=== PATIENT | male | born 1960 | race Two or more races ===

== ENCOUNTER 2023-07-25 12:06 | Inpatient (IN) | payer OTHER ==
[2023-07-25 13:12] VITALS: BMI 29.7
[2023-07-25] MEDS ORDERED: ACETAMINOPHEN 325 MG TABLET (FP) PO PRN (16:54)
[2023-07-25] MEDS ORDERED: IBUPROFEN 400 MG TABLET (FP) PO PRN (16:54)
[2023-07-25] MEDS ORDERED: BISMUTH SUBSALICYLATE 524 MG/30 ML PO PRN (16:54)
[2023-07-25] MEDS ORDERED: P-EPHED 60MG/TRIPROLIDI 2.5MG TABLET PO PRN (16:54)
[2023-07-25] MEDS ORDERED: LOPERAMIDE HCL 2 MG CAPSULE PO PRN (16:54)
[2023-07-25] MEDS ORDERED: BENZOCAINE/MENTHOL (CHLORASEPTIC ) LOZENGE MM PRN (16:54)
[2023-07-25] MEDS ORDERED: BENZONATATE 200 MG CAPSULE PO PRN (16:54)
[2023-07-25] MEDS ORDERED: ONDANSETRON *ODT* 4 MG TABLET SL PRN (16:54)
[2023-07-25] MEDS ORDERED: MAGNESIUM HYDROX 2400MG/30ML ORAL SUSPENSION 30 ML CUP PO PRN (16:54)
[2023-07-25] MEDS ORDERED: POLYETHYLENE GLYCOL (HEALTHYLAX) 3350 17 GM PACKET PO PRN (16:54)
[2023-07-25] MEDS ORDERED: guaiFENesin 600 MG TABLET.ER (FP) PO PRN (16:54)
[2023-07-25] MEDS ORDERED: MAG HYDROX/AL HYDROX/SIMETH 30 ML UNIT-DOSE CUP PO PRN (16:54)
[2023-07-25] MEDS ORDERED: DICYCLOMINE HCL 10 MG CAPSULE PO PRN (16:54)
[2023-07-25] MEDS: IBUPROFEN 600 MG TABLET (FP) PO PRN (19:21)
[2023-07-25] MEDS: MELATONIN 5 MG TABLETS PO SCH (22:37)
[2023-07-25] MEDS: THIAMINE HCL 100 MG TABLET (FP) PO SCH (22:38)
[2023-07-26] MEDS: hydrOXYzine PAMOATE 25 MG CAPSULE (FP) PO PRN ×2 (09:42→22:01)
[2023-07-26] MEDS: PRENATAL VITAMINS W/ FOLIC ACID TABLET (FP) PO SCH (09:42)
[2023-07-26 11:38] LABS: CHLORIDE 108 mmol/L (98-107); SODIUM 143 mmol/L (136-145)
[2023-07-26 11:51] LABS: HEMATOCRIT 36.1 % (35.4-49); HEMOGLOBIN 11.8 GM/dL (11.7-16.9); MCH 28.7 pg (25.7-33.7); MCHC 32.6 g/dl (32.0-35.9); MEAN CELL VOLUME 87.9 fl (80-96); MEAN PLT VOLUME 9.4 fl (7.5-11.1); PLATELET COUNT 148 10^3/uL (134-434); RDW 17.5 % (11.9-15.9); WHITE BLOOD COUNT 3.1 K/mm3 (4.0-10.0)
[2023-07-26 11:55] LABS: CALCIUM 8.9 mg/dL (8.5-10.1)
[2023-07-26 11:56] LABS: ANION GAP 4 mmol/L (4-13); BLOOD UREA NITROGEN 14.5 mg/dL (7-18); CO2 30 mmol/L (21-32); GLUCOSE,RANDOM 109 mg/dL (74-106)
[2023-07-26 11:58] LABS: CREATININE 0.6 mg/dL (0.55-1.3)
[2023-07-26 11:59] LABS: SGOT/AST 33 U/L (15-37); SGPT/ALT 30 U/L (13-61)
[2023-07-26 12:00] LABS: BILIRUBIN,TOTAL 1.3 mg/dL (0.2-1); TOT PROT 6.1 g/dl (6.4-8.2)
[2023-07-26 12:01] LABS: ALK PHOS 54 U/L (45-117)
[2023-07-26 16:48] VITALS: RESP 18
[2023-07-26] MEDS: IBUPROFEN 600 MG TABLET (FP) PO PRN (17:25)
[2023-07-26] MEDS: MELATONIN 5 MG TABLETS PO SCH (22:01)
[2023-07-26] MEDS: THIAMINE HCL 100 MG TABLET (FP) PO SCH (22:01)
[2023-07-27] MEDS: hydrOXYzine PAMOATE 25 MG CAPSULE (FP) PO PRN (09:39)
[2023-07-27] MEDS: PRENATAL VITAMINS W/ FOLIC ACID TABLET (FP) PO SCH (09:39)
[2023-07-27 10:07] VITALS: BP 154/96; PULSE 74; TEMP 98.4
[2023-07-27] MEDS ORDERED: amLODIPine BESYLATE 5 MG TABLET (FP) PO SCH (10:30)
== END 2023-07-27 13:05 | disposition home or self-care (01) | DRG 775 ==
LOC: YASAS 12:06 → Y6N 18:17
PROVIDERS: ADMIT Allergy & Immunology; ATTEND Surgery
PROC: HZ2ZZZZ Detoxification Services for Substance Abuse Treatment (ICD-10-PCS; principal; 2023-07-25)
DX: F10.10 Alcohol abuse, uncomplicated (principal); I10 Essential (primary) hypertension
CPT/HCPCS: 36415; 80053; 80307; 85027; 86780; 87635

== ENCOUNTER 2024-12-06 16:58 | Inpatient (IN) | payer OTHER ==
[2024-12-06 17:49] VITALS: BMI 30.2
[2024-12-06] MEDS ORDERED: MAGNESIUM HYDROX 2400MG/30ML ORAL SUSPENSION 30 ML CUP PO PRN (18:07)
[2024-12-06] MEDS ORDERED: BENZOCAINE/MENTHOL (CHLORASEPTIC ) LOZENGE MM PRN (18:07)
[2024-12-06] MEDS ORDERED: IBUPROFEN 400 MG TABLET (FP) PO PRN (18:07)
[2024-12-06] MEDS ORDERED: NALOXONE (NARCAN) HCL 4 MG/0.1 ML SPRAY NS PRN (18:07)
[2024-12-06] MEDS ORDERED: BENZONATATE 200 MG CAPSULE PO PRN (18:07)
[2024-12-06] MEDS ORDERED: LOPERAMIDE HCL 2 MG CAPSULE PO PRN (18:07)
[2024-12-06] MEDS ORDERED: POLYETHYLENE GLYCOL (HEALTHYLAX) 3350 17 GM PACKET PO PRN (18:07)
[2024-12-06] MEDS ORDERED: DICYCLOMINE HCL 10 MG CAPSULE PO PRN (18:07)
[2024-12-06] MEDS ORDERED: MAG HYDROX/AL HYDROX/SIMETH 30 ML UNIT-DOSE CUP PO PRN (18:07)
[2024-12-06] MEDS ORDERED: guaiFENesin 600 MG TABLET.ER (FP) PO PRN (18:07)
[2024-12-06] MEDS ORDERED: BISMUTH SUBSALICYLATE 524 MG/30 ML PO PRN (18:07)
[2024-12-06] MEDS ORDERED: hydrOXYzine PAMOATE 25 MG CAPSULE (FP) PO PRN (18:07)
[2024-12-06] MEDS ORDERED: ONDANSETRON *ODT* 4 MG TABLET SL PRN (18:07)
[2024-12-06] MEDS ORDERED: LORazepam 1 MG TABLET PO PRN (18:07)
[2024-12-06] MEDS: METOPROLOL TARTRATE 25 MG TABLET (FP) PO ONE ×2 (18:25→22:39)
[2024-12-06] MEDS ORDERED: METOPROLOL TARTRATE 25 MG TABLET (FP) PO ONE (21:20)
[2024-12-06] MEDS: THIAMINE 100 MG TABLET PO SCH (22:28)
[2024-12-06] MEDS: MELATONIN 5 MG TABLETS PO SCH (22:28)
[2024-12-06] MEDS: ASPIRIN COATED 81 MG TABLET.EC PO SCH (22:28)
[2024-12-06] MEDS: LORazepam 1 MG TABLET PO SCH (22:39)
[2024-12-06] MEDS: ACETAMINOPHEN 325 MG TABLET (FP) PO PRN (22:48)
[2024-12-06] MEDS: BACLOFEN 10 MG TABLET (FP) PO PRN (22:49)
[2024-12-06] MEDS ORDERED: LORazepam 2 MG TABLET PO SCH (23:00)
[2024-12-07] MEDS: amLODIPine BESYLATE 5 MG TABLET (FP) PO SCH (10:09)
[2024-12-07] MEDS: PRENATAL VITAMINS W/ FOLIC ACID TABLET (FP) PO SCH (10:10)
[2024-12-07 11:15] LABS: HEMATOCRIT 37.4 % (35.4-49); MCH 27.5 pg (25.7-33.7); MEAN CELL VOLUME 85.8 fl (80-96); MEAN PLT VOLUME 9.2 fl (7.5-11.1); PLATELET COUNT 163 10^3/uL (134-434); RBC 4.36 M/mm3 (4.00-5.60); RDW 17.2 % (11.9-15.9)
[2024-12-07 12:55] LABS: CHLORIDE 104 mmol/L (98-107); POTASSIUM 3.7 mmol/L (3.5-5.1); SODIUM 143 mmol/L (136-145)
[2024-12-07 12:57] LABS: ANION GAP 10 mmol/L (4-13); BLOOD UREA NITROGEN 12.6 mg/dL (7-18); CO2 30 mmol/L (21-32); GLUCOSE,RANDOM 111 mg/dL (74-106)
[2024-12-07 12:58] LABS: ALBUMIN 3.5 g/dl (3.4-5.0)
[2024-12-07 13:00] LABS: CREATININE 0.7 mg/dL (0.55-1.3); SGOT/AST 104 U/L (15-37)
[2024-12-07 13:01] LABS: SGPT/ALT 56 U/L (13-61)
[2024-12-07 13:02] LABS: BILIRUBIN,TOTAL 1.1 mg/dL (0.2-1); TOT PROT 6.8 g/dl (6.4-8.2)
[2024-12-07 13:05] LABS: ALK PHOS 67 U/L (45-117)
[2024-12-07] MEDS: PNEUMOC 20-VAL CONJ-DIP CRM/PF 0.5 ML SYRINGE IM ONE (13:27)
[2024-12-08] MEDS: LORazepam 1 MG TABLET PO SCH (05:15)
[2024-12-08] MEDS: amLODIPine BESYLATE 10 MG TABLET (FP) PO SCH (10:15)
[2024-12-08] MEDS: IBUPROFEN 600 MG TABLET (FP) PO PRN (17:25)
[2024-12-09] MEDS ORDERED: LORazepam 0.5 MG TABLET PO PRN
[2024-12-09] MEDS: LORazepam 0.5 MG TABLET PO SCH (05:35)
[2024-12-09 20:48] VITALS: RESP 16
[2024-12-10] MEDS: LORazepam 0.5 MG TABLET PO ONE (05:58)
[2024-12-10 09:29] VITALS: BP 112/63; PULSE 90; TEMP 98
== END 2024-12-10 10:14 | disposition home or self-care (01) | DRG 775 ==
LOC: YASAS 16:58 → Y3N 21:22
PROVIDERS: ADMIT Allergy & Immunology; ATTEND Allergy & Immunology
PROC: HZ2ZZZZ Detoxification Services for Substance Abuse Treatment (ICD-10-PCS; principal; 2024-12-06)
DX: F10.230 Alcohol dependence with withdrawal, uncomplicated (principal); I10 Essential (primary) hypertension; R94.31 Abnormal electrocardiogram [ECG] [EKG]; Z87.891 Personal history of nicotine dependence; Z59.01 Sheltered homelessness
CPT/HCPCS: 36415; 80053; 80305; 80307; 85027; 86780; 93005; 93010; J0475